=== PATIENT | female | born 1980 | race Caucasian/White ===

== ENCOUNTER 2019-07-21 08:42 | Emergency (ER) | payer BC ==
[2019-07-21 08:56] VITALS: BP 128/73
--- NOTE | 2019-07-21 09:18 | UC ---
General HPI - HPI Summary HPI Summary: Patient's a healthy 31-year-old female who presents to urgent care reporting some low back pain and fever that started last night. Patient states it was 102 with improvement with Tylenol last night - nothing today. Patient denies nausea vomiting. Patient states she's had a little bit of urinary frequency. No hematuria. No vaginal discharge, itching, odor. Patient states she feels very fatigued. Patient with decreased energy little by mouth. Patient denies any trauma. No head congestion and ear pain. No tick bites. No recent travel. Patient denies sick contacts but is a third grad[employer] grader. Patient states she is not . Medications reviewed this visit. - History of Current Complaint Chief Complaint: UCGeneralIllness Stated Complaint: MUCSLE PAIN LOWER BACK PAIN FEVER Time Seen by Provider: 07/21/19 09:16 Hx Obtained From: Patient Hx Last Menstrual Period: 07/14/19 Onset/Duration: Gradual Onset Onset Severity: Moderate Current Severity: Moderate Pain Intensity: 4 - Allergy/Home Medications Allergies/Adverse Reactions: Allergies Allergy/AdvReac Type Severity Reaction Status Date / Time No Known Allergies Allergy Verified 07/21/19 08:48 Home Medications: Home Medications Cetirizine* [ZyrTEC 10 MG TAB*] 1 tab PO DAILY 07/21/19 [History Confirmed 07/21] PMH/Surg Hx/FS Hx/Imm Hx Previously Healthy: Yes - Surgical History Surgical History: Yes Surgery Procedure, Year, and Place: RIGHT WRIST DEQUERVAINS. 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 EOM intact and full ENT: Hearing grossly normal TM x 2 clear, mmoist, uvula midline, no exudate, no erythema Neck: Positive: Supple Respiratory: Positive: No respiratory distress, No accessory muscle use + CTA throughout no w/r Cardiovascular: RRR nl s1, s2 no m/r CBT <2 sec abd soft + BS nt/nd no guarding, no distension, mild left CVA Musculoskeletal Exam: JUNG x 4 without difficulty Strength Intact, ROM Intact Neurological: Positive: Alert, + sensation throughout Psychological: Positive: Normal Response To clinical operations manager Skin: Positive: no rash, no blisters no ecchymosis Triage Information Reviewed: Yes Vital Signs: Initial Vital Signs Temp 98.4 F 07/21/19 08:51 Pulse 94 07/21/19 08:51 Resp 18 07/21/19 08:51 BP 128/73 07/21/19 08:51 Pulse Ox 100 07/21/19 08:51 Diagnostics - Radiology No standard instances Radiology Interpretation Completed By: Radiologist - Patient Name: AURE ENRIQUEZ Medical Record#: [id number] Ordering Physician: Alonso CHUNG Acct.#: [id number] : 01/02/2005 Age: 14 Sex: F Location: [facility] Exam Date: 07/21/191733 ADM Status: DEP ER Order Information: ANKLE LEFT 3+ VWS Accession Number: [id number] CPT: 35216 INDICATION: Left lateral ankle pain after injury COMPARISON: None. TECHNIQUE: 3 views of the left ankle were obtained. FINDINGS : There is mild soft tissue swelling overlying the fibular malleolus. The well corticated bones exhibit normal alignment. Joint spaces appear maintained. No fracture is seen. IMPRESSION: MILD SOFT TISSUE SWELLING OVERLYING THE FIBULAR MALLEOLUS WITHOUT RADIOGRAPHICALLY APPARENT BONY FRACTURE OR DISLOCATION. If the patient's symptoms persist, follow-up imaging is recommended. <Electronically signed by Rell Meng MD in OV> 07/21/191831 Dictated By: Rell Meng MD Dictated Date /Time: 07/21/191830 Transcribed Date/Time: 07/21/191830 Copy to: CC:Marilin Ledesma MD; Triny Ashraf MD; Alonso CHUNG Imaging - [facility] Imaging - [facility] Imaging - [facility] [id number] [place] [id number] [place] [id number] ph [phone]) ph ([phone] ) ph ([phone]) This report is only to be considered final once signed by the Provider(s) as displayed in the "<Electronically Signed by >" field (s). Absence of a signature indicates the report is in a draft status and still needs to be finalized. In the event this document was created by someone other than the signing Provider, the individual initiating the document will be listed in the "Entered by:" or "Dictated by:" white. of Re-Evaluation - Re-Evaluation First Eval Comment: reviewed imaging and urine with pt. unclear cause of fever - possible early uti -not toxic appearing. will culture urine. start aumgentin. motrin/ apap. hydrated. strict return precautions. pt comfortable and preeti greement with plan Course/Dx - Course Course Of Treatment: PT presenst with back pain, frequency and fevers since yesterday. improved with antipyretic. No dysuria, frequency no traumat fatigue, decreased appetitie vital signs reviewed pt appears tired, note toxic. Pt with pain in left flank Will check cT scan (pyelo, stone check urine reassess - Diagnoses Provider Diagnosis: Urine frequency Discharge ED - Sign-Out/Discharge Documenting (check all that apply): Patient Departure All imaging exams completed and their final reports reviewed: Yes - Discharge Plan Condition: Stable Disposition: HOME Prescriptions: Amoxicillin/Clavulanate TAB* [Augmentin TAB 875*] 875 mg PO BID #20 tab Patient Education Materials: Fever in Adults (ED), Flank Pain (ED) Referrals: Arnaldo Rossi MD [Primary Care Provider] - Additional Instructions: - Take antibiotics as prescribed - Okay to alternate ibuprofen (Advil, Motrin) 600mg and Tylenol (acetaminophen) every 3 hours for pain or fever. Take with food. Do NOT take for more than 4-5 days. - Stay well hydrated - drink plenty of non-alcoholic, non-caffinated beverages - Get plenty of restful sleep - your urine will be sent for additional testing - if you need a change if your treatment, you will receive a call from a care receiving team member - this may take 2-3 days - If you develop increased pain, uncontrolled fevers, vomiting, weakness or any other concerns it recommended you go to the emergency department for further evaluation and treatment - Billing Disposition and Condition Condition: STABLE Disposition: Home
[2019-07-21] MEDS ORDERED: Acetaminophen TAB* 325 MG PO ONE (09:26)
--- NOTE | 2019-07-22 15:31 | UC ---
- Progress Note Progress Note: Urine cultures negative, stop Augmentin, follow up with primary for further testing. -Margaret Nash PA-C Course/Dx - Diagnoses Provider Diagnoses: Urine frequency Discharge ED - Sign-Out/Discharge Documenting (check all that apply): Patient Departure All imaging exams completed and their final reports reviewed: No Studies - Discharge Plan Condition: Stable Disposition: HOME Prescriptions: Amoxicillin/Clavulanate TAB* [Augmentin TAB 875*] 875 mg PO BID #20 tab Patient Education Materials: Fever in Adults (ED), Flank Pain (ED) Referrals: Arnaldo Rossi MD [Primary Care Provider] - Additional Instructions: - Take antibiotics as prescribed - Okay to alternate ibuprofen (Advil, Motrin) 600mg and Tylenol (acetaminophen) every 3 hours for pain or fever. Take with food. Do NOT take for more than 4-5 days. - Stay well hydrated - drink plenty of non-alcoholic, non-caffinated beverages - Get plenty of restful sleep - your urine will be sent for additional testing - if you need a change if your treatment, you will receive a call from a care team leader/research psychologist - this may take 2-3 days - If you develop increased pain, uncontrolled fevers, vomiting, weakness or any other concerns it recommended you go to the emergency department for further evaluation and treatment - Billing Disposition and Condition Condition: STABLE Disposition: Home
== END 2019-07-21 10:17 | disposition home or self-care (01) ==
LOC: UCEAST 08:42
DX: R35.0 Frequency of micturition (principal); M54.5 Low back pain; R53.83 Other fatigue; M79.89 Other specified soft tissue disorders
CPT/HCPCS: 74176; 81003; 84702; 87086; 99212; A9270-GY; G0463